=== PATIENT | female | born 1955 | race Caucasian/White ===

== ENCOUNTER → 2017-01-14 | Outpatient (CLI) | payer BC ==
--- NOTE | ~2017-01-14 | EKG ---
[address] [address] ELECTROCARDIOGRAM REPORT Name: ANAYA IRENE Room #: REG Jose Alarcon#: [id number] Admission: 01/14/17 Attend Phys: Jazzy Keene MD Discharge: Date of : 51 Report #: [id number] THIS REPORT FOR: //name// [facility] Test Date: 2017-01-14 Test Time: 09:51:03 Pat Name: ANAYA IRENE Department: Room: Gender: F [employer]: Delores RODAS : 1955 Requested By: Jazzy Keene Order Number: [id number] MD: Tad Stanford Measurements Intervals [place] Rate: 73 P: 52 IN: 168 QRS: -1 QRSD: 73 T: 37 QT: 386 QTc: 426 Interpretive Statements Sinus rhythm Normal tracing No previous ECG available for comparison Electronically Signed On 01-15-2017 8:01:40 CDT by Tad Stanford [email or web address] <ELECTRONICALLY SIGNED> By: Tad Stanford MD, [facility] 01/15/17 0801 [id number] Tad Stanford MD, FAC /EPI
== END ==
LOC: CV 09:16
DX: E11.9 Type 2 diabetes mellitus without complications (principal)